=== PATIENT | female | born 1950 | race Hispanic/Latino ===

== ENCOUNTER 2016-10-22 06:09 | Inpatient (IN) | payer MEDICARE ==
[2016-10-22 06:43] LABS: Basophils % (Auto) 2.4 % (0.0-1.8); Eosinophils % (Auto) 3.6 % (0.0-4.3); Hematocrit 45.2 % (30.3-42.9); Hemoglobin 15.1 gm/dl (10.1-14.3); Mean Corpuscular HGB Conc 34 % (30-34); Mean Corpuscular Hemoglobin 30 pg (28-32); Mean Corpuscular Volume 89 fl (79-97); Platelet Count 262 K/mm3 (140-440); Red Blood Count 5.07 M/mm3 (3.65-5.03); Red Cell Distribution Width 13.6 % (13.2-15.2); White Blood Count 7.1 K/mm3 (4.5-11.0)
[2016-10-22] MEDS ORDERED: NORMODYNE IV ONE (06:52)
--- NOTE | 2016-10-22 06:52 | Emergency Department Report ---
HPI - General Chief Complaint: Neuro Symptoms/Deficit Time Seen by Provider: 10/22/16 06:32 - HPI HPI: This is a 66-year-old female who presents to the emergency department with complaint of "my thinks I had a stroke." Patient says that 24 hours ago she began having right arm and right leg pain. At that time the right side was harder to move secondary to the increased discomfort it caused. That seemed to improve. However last night at about 10 PM the symptoms came back and this time it was associated with some right lower extremity weakness. Patient is able to move all 4 extremities but she is unable to support herself due to the right lower 70 weakness and did have a fall last night. She hit her face and head but denies any current headache, neck pain, facial pain but just does have some abrasions to the face. She denies any slurred speech, imaging change, chest pain, shortness breath, nausea, vomiting or fever. Patient denies any past medical history. She presents with very elevated blood pressure but once again denies any past medical history. She does not have a primary care doctor. Denies tobacco abuse or any illicit drug use or abuse she did not take anything for symptoms prior to presentation. ED Past Medical Hx - Past Medical History Previous Medical History?: Yes Hx GERD: Yes - Surgical History Past Surgical History?: Yes Hx Appendectomy: Yes Additional Surgical History: knee replacement - Social History Smoking Status: Never Smoker Substance Use Type: None - Medications Home Medications: Home Medications Medication Instructions Recorded Confirmed Last Taken Type No Known Home Medications [No 10/22/16 10/22/16 Unknown History Reported Home Medications] ED Review of Systems ROS: Stated complaint: CVA Other details as noted in HPI Comment: All other systems reviewed and negative Constitutional: denies: chills, fever Eyes: denies: eye pain, eye discharge, vision change ENT: denies: ear pain, throat pain Respiratory: denies: cough, shortness of breath, wheezing Cardiovascular: denies: chest pain, palpitations Gastrointestinal: denies: abdominal pain, nausea, diarrhea Genitourinary: denies: urgency, dysuria, discharge Musculoskeletal: denies: back pain, joint swelling, arthralgia Skin: other (abrasions). denies: rash Neurological: weakness, abnormal gait Physical Exam - Physical Exam Vital Signs: Vital Signs 10/22/16 06:33 Temperature 98.4 F Pulse Rate 103 H Respiratory 24 Rate Blood Pressure 189/95 [Right] O2 Sat by Pulse 97 Oximetry Physical Exam: GENERAL: The patient is well-developed well-nourished. HEENT: Normocephalic. Atraumatic. Extraocular motions are intact. Patient has moist mucous membranes. Pupils equal reactive to light bilaterally. No nystagmus. No facial asymmetry. Tongue is midline. NECK: Supple. Trachea is midline. CHEST/LUNGS: Clear to auscultation. There is no respiratory distress noted. HEART/CARDIOVASCULAR: Regular. There is no tachycardia. There is no gallop rub or murmur. ABDOMEN: Abdomen is soft, nontender. Patient has normal bowel sounds. There is no abdominal distention. SKIN: There is no rash. There is no diaphoresis. NEURO: The patient is awake, alert, and oriented. The patient is cooperative. There are sensory deficits. Cranial nerves II through XII grossly intact. The patient has normal speech. No pronator drift. No dysmetria. MUSCULOSKELETAL: There is no tenderness or deformity. There is no limitation range of motion. There is no evidence of acute injury. Patient has muscle strength 5 out of 5 for upper and lower extremities while laying supine on the [place]. ED Course Vital Signs 10/22/16 06:33 Temperature 98.4 F Pulse Rate 103 H Respiratory 24 Rate Blood Pressure 189/95 [Right] O2 Sat by Pulse 97 Oximetry ED Medical Decision Making - Lab Data Result diagrams: 10/22/16 06:32 10/22/16 06:32 - EKG Data -: EKG Interpreted by Wi EKG shows normal: sinus rhythm, axis, intervals, QRS complexes, ST-T waves ( nonspecific ST-T changes) Rate: tachycardia (102 bpm) - EKG Data When compared to previous EKG there are: previous EKG unavailable Interpretation: nonspecific ST-T wave dylan - Radiology Data Radiology results: report reviewed CT of the head does not show any acute process including no hemorrhage, mass, shift, diffuse edema or skull fracture. - Medical Decision Making This is a hypertensive diabetic who presents with the complaint of right-sided pain as well as right-sided weakness worst in the lower extremity. Patient is not a TPA candidate as her symptoms began last night around 10 PM and she is outside of the window. Physical exam the patient displays good muscle strength while lying supine in the rney but she is unable to fully support herself and bear weight secondary to the weakness in the right lower extremity. There is no facial asymmetry or slurred speech. However the patient's says that he felt that she had slurred speech last night. Patient's blood sugar was about 250 and is elevated but does not appear to be consistent with any DKA or HHNK. EKG is nonspecific for any ST-T changes but otherwise does not appear to be ST elevation [place] or significant dysrhythmia. CT of the head does not show any bleed, shift, mass or any acute cranial process. To the patient's symptoms and concern for TIA, patient will be admitted to hospital for further evaluation and has been accepted for admission by the hospitalist, Dr. Stevens. - Differential Diagnosis CVA, TIA, brain bleed, DKA, [place] Critical Care Time: No Critical care attestation.: If time is entered above; I have spent that time in minutes in the direct care of this critically ill patient, excluding procedure time. ED Disposition Clinical Impression: Hyperglycemia, Weakness TIA (transient ischemic attack) Qualifiers: Transient cerebral ischemia type: unspecified Qualified Code(s): G45.9 - Transient cerebral ischemic attack, unspecified Disposition: OP ADMITTED IP TO THIS HOSP Is pt being admited?: Yes Condition: Stable Referrals: PRIMARY CARE, [Primary Care Provider] - 3-5 Days Time of Disposition: 10:33
[2016-10-22 06:59] LABS: INR 0.86 (0.87-1.13)
[2016-10-22 07:00] LABS: Partial Thromboplastin Time 27.2 Sec. (24.2-36.6)
[2016-10-22 07:02] LABS: Anion Gap 19 mmol/L; Blood Urea Nitrogen 18 mg/dL (7-17); Calcium 9.1 mg/dL (8.4-10.2); Carbon Dioxide 29 mmol/L (22-30); Chloride 91.5 mmol/L (98-107); Glucose 254 mg/dL (65-100); Sodium 135 mmol/L (137-145)
--- NOTE | 2016-10-22 08:02 | Cat Scan Report ---
FINAL REPORT PROCEDURE: CT HEAD/BRAIN WO CON TECHNIQUE: Computerized tomography of the head was performed without contrast material. HISTORY: falling COMPARISON: No prior studies are available for comparison. FINDINGS: Skull and scalp: Normal. Paranasal sinuses: Normal. Ventricles and subarachnoid spaces: There is mild central and cortical atrophy. There is no hydrocephalus or asymmetry.. Cerebrum: No evidence of hemorrhage, acute infarction or mass. There are old lacunar infarct defects in the basal ganglia bilaterally. There is chronic periventricular deep white matter ischemic gliosis. Cerebellum and brainstem: No evidence of hemorrhage, acute infarction or mass. Vasculature: Normal. Comments: None. IMPRESSION: There are chronic changes as described. There is no acute intracranial abnormality.
--- NOTE | 2016-10-22 08:34 | Admit Criteria Form ---
Admission Criteria Documentation: TRANSIENT ISCHEMIC ATTACK (TIA) Clinical Indications for Admission to Inpatient Care (Place 'X' for any and all applicable criteria): Admission is indicated for ANY ONE of the following(1)(2)(3)(4)(5): [ ]I. Immediate inpatient procedure is needed (eg, endarterectomy). [X]II. Inpatient admission required rather than observation care (Also use Transient Ischemic Attack (TIA): Observation Care Criteria as appropriate) because of ANY ONE of the following: [ ]a) Focal neurologic signs or symptoms persist or recurring [ ]b) Cardiac arrhythmias of immediate concern [ ]c) Clinically significant cardiac disorder identified that requires inpatient care (eg, severe valvular disease, atrial myxoma, cardiomyopathy) [X]d) Hypertension requiring inpatient treatment [ ]e) Parenteral anticoagulation required (eg, alternative forms of anticoagulation not appropriate or not feasible) as indicated by ALL of the following(13): [ ]i) Temporary subtherapeutic anticoagulation unacceptable because of high risk of short-term venous or arterial thromboembolism due to ANY ONE of the following(14)(15)(16): [ ]1) Atrial fibrillation suspected as etiology of TIA(17)(18)(19)(20)(21) [ ]2) Venous thromboembolism within past 12 months [ ]3) Underlying malignancy [ ]4) Patient with mechanical cardiac valve(22)( 23) [ ]5) Underlying hypercoagulable state (eg, protein C or protein S deficiency antithrombin deficiency, antiphospholipid antibodies) [ ]6) Patient at temporary high risk of thromboembolism (eg, status post orthopedic surgery) [ ]ii) Contraindications to outpatient use of "bridging" agent or alternative oral anticoagulant[B] as indicated by ALL of the following: [ ]1) Contraindication to outpatient use of low- molecular-weight heparin as "bridging" agent as indicated by ANY ONE of the following(15): [ ]A. Documented current or history of heparin-induced thrombocytopenia(24) [ ]B. Severe thrombocytopenia (eg, platelet count less than 50,000/mm3 (04o441/L) [ ]C. Documented allergy to heparin, low- molecular-weight heparin, or pork products [ ]D. Renal failure (creatinine clearance less than 30 mL/min/1.73m2 (0.50mL/sec/1.73m2) or on dialysis) [ ]E. Inability to manage self-injection ( eg, by patient, caregiver, or visiting nurse) [ ]2) Contraindication to outpatient use of fondaparinux as "bridging" agent as indicated by ANY ONE of the following(25)(26 )(27)(28): [ ]A. Severe thrombocytopenia (eg, platelet count less than 50,000/mm3 (50 x109/L)) [ ]B.Hypersensitivity to fondaparinux, related drugs, or product components [ ]C.Renal failure (creatinine clearance less than 30 mL/min/1.73m2 (0.50mL/sec/1.73m2) or on dialysis) [ ]D.Inability to manage self-injection ( eg, by patient, caregiver, or visiting nurse [ ]3. Oral direct thrombin inhibitor (eg, dabigatran) or oral coagulation factor Xa inhibitor (eg, rivaroxaban, apixaban) not appropriate as oral anticoagulation (eg, indication not appropriate) or contraindicated (eg, hypersensitivity, creatinine clearance less than 15 mL/min/1.73m2 ( 0.25 mL/sec/1.73m2) or on dialysis). [ ]f) Continuous IV infusion of anticoagulant, platelet inhibitor, vasoactive or antiarrhythmia(18)(19) [ ]g) Other condition, treatment, or monitoring requiring inpatient admission [ ]III. Contraindications and/or Inappropriate clinical situations for Observational Care in patients with Transient Ischemic Attack (TIA), when ANY ONE of the following is required: [ ]a) Patient with persistent or severe neurological deficit 24 [ ]b) Patient with acute CVA or other identified pathology should be admitted to inpatient for further care 25 [ ]IV. General contraindications and/or Inappropriate clinical situations for Observational Care in patients with Transient Ischemic Attack (TIA), when ANY ONE of the following is required: [ ]a) Prediction of prolongation of LOS based on ANY ONE of the following may be considered as a contraindication for observational care 2, 3, 4, 5, 6, 7, 8, 9, 10, 11 [ ]i) Age > 65 yrs. [ ]ii) Patient arriving by ambulance [ ]iii) Patient with high acuity [ ]iv) Patient requiring vital sign monitoring [ ]v) Patient on IV medication [ ]b) Systolic blood pressures 180mmHg 3,12 [ ]c) Patient with altered mental status including delirium and other alteration of consciousness, (3) [ ]d) Patient whose discharge disposition will be to a [facility] home or rehabilitation home should not be managed in Emergency Department Observation Unit. CMS rule requires 3 days hospital stay before such placement.3,13 [ ]e) Patient with failure to thrive due to broad array of etiologies 3,16,17 [ ]f) Inability to ambulate 3,14 Extended stay beyond goal length of stay may be needed for(4)(30)(32): [ ]a) Parenteral anticoagulation required [ ]b) Dangerous arrhythmia [ ]c) Cardiac valvular disorder, atrial myxoma, cardiomyopathy [ ]d) Uncontrolled severe hypertension [ ]e) Severe carotid stenosis [ ]f) Active comorbidities (eg, heart failure) [ ]g) Extracranial vertebrobasilar disease(29) [ ]h) Clinical evolution of TIA into cerebrovascular accident (stroke) The original [employer] content created by [employer] has been revised. The portions of thecontent which have been revised are identified through the use of italic text or in bold, and [facility] has neither reviewed nor approved the modified material. All other unmodified content is copyright [employer]. Please see references footnoted in the original [employer] [facility] [facility] edition 2016 Admission Criteria Met: Yes
--- NOTE | 2016-10-22 09:23 | History and Physical Report ---
History of Present Illness Chief complaint: I cant move my right side, and I fell down History of present illness: 66 YO Female with HTN, Metabolic Syndrome, GERD, presents to ED for evaluation. Pt states that she has been experiencing weakness and tingling on her right side for the past 2 days. Pt states that symptoms recurred around 2200hrs and at that time she was unable to move the right side of her body. Pt traied to ambulate but subsequently fell and hit her head. Pt denies loss of consciousness , seizure, vertigo, syncope, CP, Palpitation, NVD, LEg swelling, calf pain, prolonged travel/immobility, individual/family history of DVT/PE, recent ill contacts, hemoptysis, productive cough, unintentional weight loss, fever, or night sweats. Past History Past Medical History: GERD, hypertension Past Surgical History: appendectomy, total knee replacement Social history: , lives with family. denies: smoking, alcohol abuse, prescription drug abuse Family history: hypertension Medications and Allergies Allergies Allergy/AdvReac Type Severity Reaction Status Date / Time No Known Allergies Allergy Unverified 10/22/16 06:12 Home Medications Medication Instructions Recorded Confirmed Last Taken Type No Known Home Medications [No 10/22/16 10/22/16 Unknown History Reported Home Medications] Review of Systems All systems: negative Neurological: weakness, parathesias, numbness Exam - Constitutional Vitals: Temp Pulse Resp BP Pulse Ox 98.4 F 103 H 18 172/106 97 10/22/16 06:33 10/22/16 06:56 10/22/16 08:47 10/22/16 07:23 10/22/16 08:47 General appearance: Present: no acute distress, obese - EENT Eyes: Present: PERRL ENT: hearing intact, clear oral mucosa - Neck Neck: Present: supple, normal ROM - Respiratory Respiratory effort: normal Respiratory: bilateral: CTA - Cardiovascular Heart Sounds: Present: S1 & S2. Absent: rub, click - Extremities Extremities: pulses symmetrical, No edema Peripheral Pulses: within normal limits - Abdominal General gastrointestinal: Present: soft, non-tender, non-distended, normal bowel sounds Female genitourinary: Present: normal - Integumentary Integumentary: Present: clear, warm, dry - Musculoskeletal Musculoskeletal: gait normal, strength equal bilaterally - Psychiatric Psychiatric: appropriate mood/affect, intact judgment & insight - Neurologic Neurologic: CNII-XII intact, moves all extremities Results - Labs CBC & Chem 7: 10/22/16 06:32 10/22/16 06:32 Labs: Abnormal lab results 10/22/16 10/22/16 10/22/16 Range/Units 06:32 06:32 06:32 RBC 5.07 H (3.65-5.03) M/mm3 Hgb 15.1 H (10.1-14.3) gm/dl Hct 45.2 H (30.3-42.9) % [place] % (Auto) 8.6 H (0.0-7.3) % Baso % (Auto) 2.4 H (0.0-1.8) % Baso # 0.2 H (0.0-0.1) K/mm3 PT 11.6 L (12.2-14.9) Sec. INR 0.86 L (0.87-1.13) Sodium 135 L (137-145) mmol/L Chloride 91.5 L (98-107) mmol/L BUN 18 H (7-17) mg/dL Creatinine 0.5 L (0.7-1.2) mg/dL Glucose 254 H (65-100) mg/dL Assessment and Plan - Patient Problems (1) TIA (transient ischemic attack) Current Visit: Yes Status: Acute Qualifiers: Transient cerebral ischemia type: T Plan to address problem: Stroke protocol: antiplatet therapy, simvastatin, MRI/MRA, Carotid Doppler, Echo , speech therapy, PT/OT consulted, (2) Accelerated hypertension Current Visit: Yes Status: Acute Plan to address problem: Monitor BP q shift, Target systolic around 160-180 today. (3) GERD (gastroesophageal reflux disease) Current Visit: Yes Status: Acute Qualifiers: Esophagitis presence: E Plan to address problem: PPI therapy, supportive care, (4) Metabolic syndrome Current Visit: Yes Status: Acute Plan to address problem: Pt counseled regarding balanced diet, increased physical activity, (5) Diabetes Current Visit: Yes Status: Suspected Qualifiers: Diabetes mellitus type: D Diabetes mellitus complication status: D Diabetes mellitus complication detail: D Diabetic retinopathy severity: D Proliferative retinopathy type: P Diabetes mellitus macular edema: D Diabetes mellitus alf insulin use: D Laterality: L Chronic kidney disease stage: C Plan to address problem: HGB a 1 c (6) DVT prophylaxis Current Visit: Yes Status: Acute
[2016-10-22] MEDS ORDERED: SODIUM CHLORIDE FLUSH SYRINGE 10 ML IV PRN (09:24)
[2016-10-22] MEDS ORDERED: PHENERGAN PR PRN (09:24)
[2016-10-22] MEDS ORDERED: DULCOLAX PR PRN (10:00)
[2016-10-22] MEDS ORDERED: MILK OF MAGNESIA PO PRN (10:00)
[2016-10-22] MEDS ORDERED: ZOFRAN IV PRN (10:00)
[2016-10-22] MEDS ORDERED: BABY ASPIRIN PO ONE (10:29)
[2016-10-22] MEDS ORDERED: REGLAN PO PRN (10:30)
--- NOTE | 2016-10-22 11:50 | Magnetic Resonance Report ---
MRI of the brain without contrast. History: Stroke. Procedure: Routine brain protocol without contrast. Findings: The study is compromised by motion artifact on multiple sequences. There is a thin curvilinear area of restricted diffusion along the medial margin of the left globus pallidus, possibly involving the lateral thalamus. There is minimal associated edema at this level. There are no additional areas of restricted diffusion. There are ill-defined areas of hyperintense T2 signal in the brainstem bilaterally consistent with chronic ischemic changes. Similar areas of hyperintense T2 and flair signal are seen in the periventricular white matter bilaterally and in the basal ganglia. There are no masses or extra-axial collections. The pituitary gland is unremarkable. The remaining visualized cranial structures are unremarkable. Impression: 1. Acute infarct in the left basal ganglia/lateral thalamus. 2. Extensive chronic ischemic changes in the periventricular white matter, basal ganglia, and brainstem.
--- NOTE | 2016-10-22 11:52 | Magnetic Resonance Report ---
MRA of the [place]. Procedure: 3-D [id number] technique. Severe motion artifact limits the accuracy of this study. Findings: Given the above technical limitations, there are no focal areas of lesser stenosis or other significant findings. No evidence of AVM or aneurysm. The left posterior cerebral artery is supplied by patent left posterior communicating artery. Impression: Technically limited negative study.
[2016-10-22] MEDS: TYLENOL PO PRN ×2 (12:42→21:06)
[2016-10-22] MEDS: PLAVIX PO SCH (12:42)
[2016-10-22] MEDS ORDERED: ZOCOR PO SCH (22:00)
--- NOTE | 2016-10-23 08:29 | Vascular Lab Report ---
CAROTID DUPLEX STUDY: RIGHT PSVEDV CCA PROX: CCA DIST: ICA PROX: ICA MID: ICA DIST: ECA: VERT: LEFT PSVEDV CCA PROX: CCA DIST: ICA PROX: ICA MID: ICA DIST: ECA: VERT: REASON FOR EXAM: Stroke. COMMENTS ON THE RIGHT: Doppler frequency analysis is consistent with 16 to 49 percent diameter reduction of the internal carotid artery. Minimal amount of plaque is seen. The common carotid artery is patent. The external carotid artery is patent. The vertebral artery has antegrade flow. COMMENTS ON THE LEFT: Doppler frequency analysis is consistent with 16 to 49 percent diameter reduction of the internal carotid artery. Minimal amount of plaque is seen. The common carotid artery is patent. The external carotid artery is patent. Elevated velocity noted in the left external carotid artery suggesting more than 50% stenosis The vertebral artery has antegrade flow. IMPRESSION: Less than 50% diameter reduction in the internal carotid arteries bilaterally. More than 50% left external carotid artery stenosis. Consider repeat carotid artery duplex in 12 months.
--- NOTE | 2016-10-23 08:45 | Progress Note ---
Assessment and Plan - Patient Problems (1) CVA (cerebral vascular accident) Current Visit: Yes Status: Acute Qualifiers: CVA mechanism: C Precerebral and cerebral artery: P Laterality of affected vessel: L Plan to address problem: Patient was evaluated by neurology and patient will continue on secondary stroke prevention. Will review PT and OT progress notes. Awaiting results from TTE (2) Hypertension Current Visit: Yes Status: Acute Qualifiers: Hypertension type: H Plan to address problem: Blood pressure not well controlled. Will add HCTZ (3) Hyperlipidemia Current Visit: Yes Status: Acute Qualifiers: Hyperlipidemia type: H Plan to address problem: Continue simvastatin. Continue to follow lipid panel History Interval history: Patient state that she still has a right-sided weakness Hospitalist Physical - Constitutional Vitals: Temp Pulse Resp BP Pulse Ox 97.9 F 85 20 182/83 97 10/23/16 04:40 10/23/16 04:40 10/23/16 04:40 10/23/16 04:40 10/23/16 04:40 General appearance: Present: no acute distress, obese - EENT Eyes: Present: PERRL, EOM intact ENT: hearing intact, clear oral mucosa - Neck Neck: Present: supple, normal ROM - Respiratory Respiratory effort: normal Respiratory: bilateral: CTA - Cardiovascular Rhythm: regular Heart Sounds: Present: S1 & S2 - Abdominal General gastrointestinal: soft, non-tender, non-distended, normal bowel sounds - Psychiatric Psychiatric: appropriate mood/affect, intact judgment & insight Results - Labs CBC & Chem 7: 10/22/16 06:32 10/22/16 06:32 Labs: Laboratory Last Values WBC 7.1 K/mm3 (4.5-11.0) 10/22/16 06:32 RBC 5.07 M/mm3 (3.65-5.03) H 10/22/16 06:32 Hgb 15.1 gm/dl (10.1-14.3) H 10/22/16 06:32 Hct 45.2 % (30.3-42.9) H 10/22/16 06:32 MCV 89 fl (79-97) 10/22/16 06:32 MCH 30 pg (28-32) 10/22/16 06:32 MCHC 34 % (30-34) 10/22/16 06:32 RDW 13.6 % (13.2-15.2) 10/22/16 06:32 Plt Count 262 K/mm3 (140-440) 10/22/16 06:32 Lymph % (Auto) 24.9 % (13.4-35.0) 10/22/16 06:32 [place] % (Auto) 8.6 % (0.0-7.3) H 10/22/16 06:32 Eos % (Auto) 3.6 % (0.0-4.3) 10/22/16 06:32 Baso % (Auto) 2.4 % (0.0-1.8) H 10/22/16 06:32 Lymph # 1.8 K/mm3 (1.2-5.4) 10/22/16 06:32 [place] # 0.6 K/mm3 (0.0-0.8) 10/22/16 06:32 Eos # 0.3 K/mm3 (0.0-0.4) 10/22/16 06:32 Baso # 0.2 K/mm3 (0.0-0.1) H 10/22/16 06:32 Seg Neutrophils % 60.5 % (40.0-70.0) 10/22/16 06:32 Seg Neutrophils # 4.3 K/mm3 (1.8-7.7) 10/22/16 06:32 PT 11.6 Sec. (12.2-14.9) L 10/22/16 06:32 INR 0.86 (0.87-1.13) L 10/22/16 06:32 APTT 27.2 Sec. (24.2-36.6) 10/22/16 06:32 Thrombin Time 17.3 Sec. (15.1-19.6) 10/22/16 06:32 Sodium 135 mmol/L (137-145) L 10/22/16 06:32 Potassium 4.0 mmol/L (3.6-5.0) 10/22/16 06:32 Chloride 91.5 mmol/L (98-107) L 10/22/16 06:32 Carbon Dioxide 29 mmol/L (22-30) 10/22/16 06:32 Anion Gap 19 mmol/L 10/22/16 06:32 BUN 18 mg/dL (7-17) H 10/22/16 06:32 Creatinine 0.5 mg/dL (0.7-1.2) L 10/22/16 06:32 Estimated GFR > 60 ml/min 10/22/16 06:32 BUN/Creatinine Ratio 36.00 % 10/22/16 06:32 Glucose 254 mg/dL (65-100) H 10/22/16 06:32 Hemoglobin A1c 9.6 % (4-6) H 10/22/16 06:32 Calcium 9.1 mg/dL (8.4-10.2) 10/22/16 06:32 Troponin T < 0.010 ng/mL (0.00-0.029) 10/22/16 06:32 Triglycerides 379 mg/dL (2-149) H 10/23/16 05:46 Cholesterol 334 mg/dL (50-199) H 10/23/16 05:46 LDL Cholesterol Direct 214 mg/dL (50-130) H 10/23/16 05:46 HDL Cholesterol 45 mg/dL (40-59) 10/23/16 05:46 Cholesterol/HDL Ratio 7.42 % 10/23/16 05:46
[2016-10-23] MEDS: TYLENOL PO PRN ×2 (09:23→13:16)
[2016-10-23] MEDS: PLAVIX PO SCH (09:25)
--- NOTE | 2016-10-23 11:28 | Consultation ---
History of Present Illness Consult date: 10/23/16 Requesting physician: FE COTTO Reason for Consult: stroke Chief complaint: Right side numb History of present illness: 66 YO F p/w R sided numbness and weakness onset 2/5. Sx fluctuated over the following days but unclear specific triggers. Sx are constant. There were no clear aggravating, relieving or temporal factors. Severity was such to cause difficulty walking. Past History Past Medical History: GERD, hypertension Past Surgical History: appendectomy, total knee replacement Social history: , lives with family. denies: smoking, alcohol abuse, prescription drug abuse Family history: hypertension Medications and Allergies Allergies Allergy/AdvReac Type Severity Reaction Status Date / Time No Known Allergies Allergy Unverified 10/22/16 06:12 Home Medications Medication Instructions Recorded Confirmed Last Taken Type No Known Home Medications [No 10/22/16 10/22/16 Unknown History Reported Home Medications] Active Meds: Active Medications Acetaminophen (Tylenol) 650 mg PO Q4H PRN PRN Reason: Pain, Mild (1-3) Last Admin: 10/23/16 09:23 Dose: 650 mg Aspirin (Baby Aspirin) 81 mg PO QDAY KATELIN Bisacodyl (Dulcolax) 10 mg [place] QDAY PRN PRN Reason: Constipation Magnesium Hydroxide (Milk Of Magnesia) 30 ml PO Q4H PRN PRN Reason: Constipation Metoclopramide HCl (Reglan) 10 mg PO Q6H PRN PRN Reason: Nausea And Vomiting Ondansetron HCl (Zofran) 4 mg IV Q8H PRN PRN Reason: N/V unrelieved by Reglan Promethazine HCl (Phenergan) 25 mg MI Q6H PRN PRN Reason: Nausea And Vomiting Simvastatin (Zocor) 40 mg PO QHS KATELIN Sodium Chloride (Sodium Chloride Flush Syringe 10 Ml) 10 ml IV PRN PRN PRN Reason: LINE FLUSH Review of Systems All systems: negative Neurological: transient paralysis, paralysis, weakness, numbness, gait dysfunction, sensory deficit Physical Examination - Vital Signs Vital Signs: Vital Signs Pulse Resp Pulse Ox 114 H 18 93 10/22/16 06:24 10/22/16 06:24 10/22/16 06:24 - Constitutional General appearance: comfortable - EENT EENT: Present: ATNC, PERRL, mucous membranes moist, hearing intact, vision intact - Respiratory Respiratory: Present: chest non-tender, normal breath sounds, no respiratory distress - Cardiovascular Cardiovascular: Present: regular rate Extremities: Present: no peripheral edema bilatateraly, no clubbing, cyanosis, no inflammation, no ischemia or petechiae - Gastrointestinal Gastrointestinal: Present: normoactive bowel sounds, non-distended - Integumentary Integumentary: Present: normal - Neurologic Cranial nerve examination: PERRL, EOMI, VFF, V1/V2/V3 grossly intact, tongue midline, intact, intact shoulder shrug, intact cough reflex, intact corneal reflex, facial droop, normal palatal elevation Speech examination: intact Sensorimotor examination: intact Motor examination - right side: 5/5: biceps, triceps, wrist flexion, wrist extension, compliance engineer products, hip flexors, knee extensors, dorsiflexion, toe extension (EHL) , plantarflexion Motor examination - left side: 5/5: biceps, triceps, wrist flexion, wrist extension, compliance engineer products, hip flexors, knee extensors, dorsiflexion, toe extension (EHL) , plantarflexion Detailed sensory examination: intact, light touch, temperature Reflex and gait examination: normal gait Reflexes: 2+: ankle, bicep, knee, tricep Cerebellar examination: ataxia - Musculoskeletal Musculoskeletal: Present: no fluid collection, no pain, normal range of motion - Psychiatric Psychiatric: Present: mood/affect appropriate, cooperative Results - Laboratory Findings CBC and BMP: 10/22/16 06:32 10/22/16 06:32 Abnormal Lab Findings: Abnormal Labs 10/23/16 05:46 Triglycerides 379 H Cholesterol 334 H LDL Cholesterol Direct 214 H - Diagnostic Findings Additional findings: MRI Brain L basal ganglia/lateral thalamus infarct. MRA head neg. CDs neg. TTE pending read. LDL 214 Assessment and Plan 66 YO F Hx HTN p/w R sided numbness/weakness found to have on MRI Brain L basal ganglia/lateral thalamus infarct causing acute lacunar stroke. MRA head neg. CDs neg. TTE pending read. LDL 214. Recs: 1. No indication for pharmacologic thrombolysis with IV tPA or mechanical thrombectomy due to last known normal > 6 hrs from presentation. Current NIHSS 2. 2. Telemetry bed w/ Q4 hour neuro checks 3. Autoregulate SBP to goal 120-170 as pt is outside permissive HTN window. 4. Secondary stroke prevention: ASA 325mg Daily x 1 then 81mg QDay & upgrade to full dose statin therapy (Crestor 20mg or 40mg OR Lipitor 40mg or 80mg Daily OR Zocor 40mg QDay) for goal LDL < 70. No firm indication at this point for therapeutic anticoagulation as pt has not had AFib captured on telemetry monitoring. 5. F/E/N: isotonic IVF prn, prn replete, bedside speech/swallow eval prior to PO intake. 6. DVT Prophylaxis 7. Stroke education, PT/OT/Speech Therapy consults, CM evaluation 8. For any changes in neurologic status, pls obtain STAT CTH w/o contrast and call neurology 9. Dispo: Neurologically clear for discharge if remains stable w/ BP control and TTE neg for thrombus.
[2016-10-23] MEDS ORDERED: BABY ASPIRIN PO SCH (12:00)
[2016-10-23] MEDS ORDERED: TENORMIN PO SCH (13:00)
--- NOTE | 2016-10-23 17:07 | Discharge Summary ---
Providers - Providers Date of Admission: 10/22/16 09:24 Date of discharge: 10/23/16 Attending physician: BRANDY HENDRICKS 10/23/16 09:28 Consult Acute Rehabilitation [CONS] Routine Consulting Provider: BROOK SCHULTZ Reason For Exam: cva/IRU CONSULT 10/23/16 09:29 Consult to Physician [CONS] Routine Consulting Provider: ESE BLUM Reason For Exam: cva Place consult to:: nEURO Notified:: VIOLETTA Phone number called:: [phone] Was contact made?: No Time called:: 09:30 Comment:: LEFT MESSAGE ON VOICE MAIL Primary care physician: LUMBER CARRIER Hospitalization Condition: Stable Hospital course: 66 YO Female with HTN, Metabolic Syndrome, GERD, presents to ED for evaluation. Pt states that she has been experiencing weakness and tingling on her right side for the past 2 days. Pt states that symptoms recurred around 2200hrs and at that time she was unable to move the right side of her body. Pt traied to ambulate but subsequently fell and hit her head. Pt denies loss of consciousness , seizure, vertigo, syncope, CP, Palpitation, NVD, LEg swelling, calf pain, prolonged travel/immobility, individual/family history of DVT/PE, recent ill contacts, hemoptysis, productive cough, unintentional weight loss, fever, or night sweats. Patient was admitted to the hospital and evaluated by neurology. Neurology felt that there was no need for follow-up neurologic normal lysis with IV tPA. Secondary stroke prevention with aspirin daily and full Dose statin therapy with Crestor patient was given stroke education, PT OT speech therapy. Patient had MRI done which showed acute infarct in the left basal ganglion and lateral thalamus. Patient was evaluated by rehabilitation medicine and physical therapy. Patient was cleared to go home and in no acute needs for physical therapy or rehabilitation at this time. Patient will be discharged home in stable condition to follow up with her primary care physician within one week. Disposition: DISCHARGED TO HOME OR SELFCARE - Discharge Diagnoses (1) CVA (cerebral vascular accident) Status: Acute (2) Hypertension Status: Acute (3) Hyperlipidemia Status: Acute Core Measure Documentation - Palliative Care Palliative Care/ Comfort Measures: Not Applicable - Core Measures Any of the following diagnoses?: stroke - Stroke Discharge Requirements Statin for LDL = or >70 mg/dl on DC: Yes Anticoag for atrial fib/atrial flutter: Not Applicable Antithrombotic for ischemic stroke: Yes Exam - Constitutional Vitals: Temp Pulse Resp BP Pulse Ox 97.9 F 112 H 20 177/108 95 10/23/16 04:40 10/23/16 13:43 10/23/16 13:43 10/23/16 13:43 10/23/16 13:43 General appearance: Present: no acute distress - EENT Eyes: Present: PERRL, EOM intact ENT: hearing intact, clear oral mucosa - Neck Neck: Present: supple, normal ROM - Respiratory Respiratory effort: normal Respiratory: bilateral: CTA - Cardiovascular Rhythm: regular Heart Sounds: Present: S1 & S2 - Abdominal General gastrointestinal: Present: soft, non-tender, non-distended, normal bowel sounds - Musculoskeletal Musculoskeletal: right sided weakness - Psychiatric Psychiatric: appropriate mood/affect, intact judgment & insight - Neurologic Neurologic: CNII-XII intact, moves all extremities Plan Activity: advance as tolerated Weight Bearing Status: Weight Bear as Tolerated Diet: low fat, low cholesterol, low salt Follow up with: PRIMARY CARE, [Primary Care Provider] - 3-5 Days Prescriptions: Aspirin [Aspirin BABY CHEW TAB] 81 mg PO QDAY #30 tab.chew Atenolol [Tenormin] 50 mg PO QDAY #30 tablet Metoclopramide [Reglan TAB] 10 mg PO Q6H PRN #60 tablet PRN Reason: Nausea And Vomiting Promethazine [Phenergan SUPPOS] 25 mg VA Q6H PRN #30 supp.rect PRN Reason: Nausea And Vomiting Simvastatin [Zocor TAB] 40 mg PO QHS #30 tablet
--- NOTE | 2016-10-23 17:11 | Consultation ---
History of Present Illness - Reason for Consult Consult date: 10/23/16 Evaluate for Acute IRU - History of Present Illness 66 y.o. female who reports acute onset of right sided weakness and parasthesias x 2days prior to admission; eventually led to a fall. Brain MRI revealed an acute infarct in the left basal ganglia. Weakness has now improved. Consult placed for post-acute placement recommendations. Past History Past Medical History: GERD, hypertension Past Surgical History: appendectomy, total knee replacement Social history: , lives with family. denies: smoking Family history: hypertension Medications and Allergies Allergies Allergy/AdvReac Type Severity Reaction Status Date / Time No Known Allergies Allergy Unverified 10/22/16 06:12 Home Medications Medication Instructions Recorded Confirmed Last Taken Type Aspirin [Aspirin BABY CHEW TAB] 81 mg PO QDAY #30 tab.chew 10/23/16 Unknown Rx Atenolol [Tenormin] 50 mg PO QDAY #30 tablet 10/23/16 Unknown Rx Metoclopramide [Reglan TAB] 10 mg PO Q6H PRN #60 tablet 10/23/16 Unknown Rx Promethazine [Phenergan SUPPOS] 25 mg VT Q6H PRN #30 supp.rect 10/23/16 Unknown Rx Simvastatin [Zocor TAB] 40 mg PO QHS #30 tablet 10/23/16 Unknown Rx Active Meds: Active Medications Acetaminophen (Tylenol) 650 mg PO Q4H PRN PRN Reason: Pain, Mild (1-3) Last Admin: 10/23/16 13:16 Dose: 650 mg Aspirin (Baby Aspirin) 81 mg PO QDAY [facility] Last Admin: 10/23/16 13:16 Dose: 81 mg Atenolol (Tenormin) 50 mg PO QDAY [facility] Last Admin: 10/23/16 13:17 Dose: 50 mg Bisacodyl (Dulcolax) 10 mg VT QDAY PRN PRN Reason: Constipation Magnesium Hydroxide (Milk Of Magnesia) 30 ml PO Q4H PRN PRN Reason: Constipation Metoclopramide HCl (Reglan) 10 mg PO Q6H PRN PRN Reason: Nausea And Vomiting Ondansetron HCl (Zofran) 4 mg IV Q8H PRN PRN Reason: N/V unrelieved by Reglan Promethazine HCl (Phenergan) 25 mg VT Q6H PRN PRN Reason: Nausea And Vomiting Simvastatin (Zocor) 40 mg PO QHS KATELIN Sodium Chloride (Sodium Chloride Flush Syringe 10 Ml) 10 ml IV PRN PRN PRN Reason: LINE FLUSH Exam - Constitutional Vitals: Vital Signs - 12hr 10/23/16 10/23/16 10/23/16 09:07 10:00 13:17 Pulse Rate 89 112 H Pulse Rate [ 101 H Right] Respiratory 24 Rate Blood Pressure 177/108 Blood Pressure 185/99 [Right Arm] O2 Sat by Pulse 93 Oximetry 10/23/16 13:43 Pulse Rate Pulse Rate [ 112 H Right] Respiratory 20 Rate Blood Pressure Blood Pressure 177/108 [Right Arm] O2 Sat by Pulse 95 Oximetry General appearance: no acute distress, other (family present) - EENT Eyes: EOM intact ENT: hearing intact - Neck Neck: supple, normal ROM - Respiratory Respiratory effort: normal - Neurologic Neurologic: CNII-XII intact, moves all extremities - Psychiatric Psychiatric: appropriate mood/affect, intact judgment & insight, memory intact, cooperative - Allied health notes Allied health notes reviewed: PT (Kain-independent for bed mobility; SBA/S for transfers; ambulated 100 feet independently without an assistive device) FIMS assesment as documented by PT/OT/ST: Locomotion- walk/wheelchair Ambulation Distance 100 - Labs CBC & Chem 7: 10/22/16 06:32 10/22/16 06:32 Labs: Laboratory Results - last 72 hr 10/23/16 05:46 Triglycerides 379 H Cholesterol 334 H LDL Cholesterol Direct 214 H HDL Cholesterol 45 Cholesterol/HDL Ratio 7.42 Assessment and Plan Patient was assessed and evaluated for Acute Inpatient Rehab Unit. 66 y.o. female s/p acute left basal ganglia infarct; resolved right sided weakness. PT evaluation was reviewed and pt is ambulating without an assistive device independently. Pt does not require any ongoing therapy at this time. Blood pressure was noted to be elevated earlier today; however, blood pressure obtained during exam was much improved. Case discussed with Dr. Reyna. Please call for any further questions. Thank you for consultation. - Patient Problems (1) CVA (cerebral vascular accident) Current Visit: Yes Status: Acute Qualifiers: CVA mechanism: C Precerebral and cerebral artery: P Laterality of affected vessel: L (2) Accelerated hypertension Current Visit: Yes Status: Acute
[2016-10-23 18:06] VITALS: BP 136/90
[2016-10-23] MEDS ORDERED: ZOCOR PO SCH (22:00)
== END 2016-10-23 19:02 | disposition home or self-care (01) | DRG 65 ==
LOC: ED 06:09 → 4A 09:24 → CC1 13:34 → 4A 20:29
PROVIDERS: ADMIT Internal Medicine; ATTEND Internal Medicine
DX: I63.9 Cerebral infarction, unspecified (principal); G81.91 Hemiplegia, unspecified affecting right dominant side; E11.9 Type 2 diabetes mellitus without complications; E88.81 Metabolic syndrome and other insulin resistance; I10 Essential (primary) hypertension; K21.9 Gastro-esophageal reflux disease without esophagitis; Z96.659 Presence of unspecified artificial knee joint; E78.5 Hyperlipidemia, unspecified; Z82.49 Family history of ischemic heart disease and other diseases of the circulatory system; E66.9 Obesity, unspecified; Z68.37 Body mass index [BMI] 37.0-37.9, adult
CPT/HCPCS: 36415; 70450; 70544; 70551; 80048; 80061; 83036; 84484; 85025; 85610; 85670; 85730; 93005; 93010; 93306; 93880; 96374; G8978-GP; G8979-GP; G8980-GP